=== PATIENT | male | born 1980 | race Two or more races ===

== ENCOUNTER 2018-12-01 18:14 | Emergency (ER) | payer SELFPAY ==
[~2018-12-01] VITALS: Ht 175.3 cm; Wt 68.9 kg
[2018-12-01 18:25] VITALS: BP 131/84
[2018-12-01] MEDS ORDERED: cefTRIAXone SOD 1,000 MG VL IM ONE (19:00)
[2018-12-01] MEDS ORDERED: LIDOCAINE W/ EPINEPHRINE 2% INJ 20ML VIAL IJ ONE (19:00)
[2018-12-01] MEDS ORDERED: ACETAMINOPHEN/CODEINE#3 (300/30mg) TAB PO ONE (19:00)
== END 2018-12-01 20:06 | disposition home or self-care (01) ==
LOC: ER 18:14
DX: L02.31 Cutaneous abscess of buttock (principal)
CPT/HCPCS: 10060; 96372; 99283; C1887; J0696

== ENCOUNTER 2018-12-02 20:19 | Emergency (ER) | payer SELFPAY ==
[~2018-12-02] VITALS: Ht 167.6 cm; Wt 68.0 kg
[2018-12-02 20:41] VITALS: BP 111/71
[2018-12-02] MEDS ORDERED: cefTRIAXone SOD 1,000 MG VL IM ONE (23:15)
[2018-12-02] MEDS ORDERED: ACETAMINOPHEN/CODEINE#3 (300/30mg) TAB PO ONE (23:30)
== END 2018-12-03 00:03 | disposition home or self-care (01) ==
LOC: ER 20:22
DX: L02.31 Cutaneous abscess of buttock (principal)
CPT/HCPCS: 96372; 99283; J0696